=== PATIENT | female | born 2000 | race Caucasian/White ===

== ENCOUNTER 2024-01-30 15:04 | Emergency (ER) | payer OTHER, SELFPAY ==
[2024-01-30 15:16] VITALS: BP 140/79
--- NOTE | 2024-01-30 15:19 | ED.GENMED ---
ED Provider Triage
<Leida Grace PA-C - Last Filed: 01/30/24 15:24>
-
Patient seen by provider in Triage?: Seen in Triage
Attestation: A medical screening examination has been initiated by a qualified medical provider. Based on the assessment performed at this time, it has been determined that an emergent medical condition may exist and the patient has been informed
that further medical evaluation and possible additional diagnostic testing may be needed.
HPI: 24yo here with nausea, vomiting, and diarrhea that began this morning. 5 episodes of vomiting, 1 episode of diarrhea. Reports fever, tmax 99. Also having lower abd discomfort. Ate at a restaurant for [employer] yesterday.
GENERAL: Alert , in no apparent distress
EYE: No visual abnormalities.
NECK: Trachea midline
ENT: No visible abnormalities.
LUNGS: No acute respiratory distress
NEUROLOGICAL: Alert and oriented
SKIN: Skin intact. No visible changes.
MUSCULOSKELETAL: Moving extremities normally
PSYCH: Normal and appropriate interaction.
This is a medical evaluation conducted in person to initiate diagnostic evaluation and provide initial therapeutics. Please see further documentation by the treating clinician.
Abdominal labs, HCG, and COVID/flu swab ordered.
History of Present Illness
<Leida Grace PA-C - Last Filed: 01/30/24 15:24>
General
Chief Complaint: Abdominal Symptoms
Time Seen by Provider: 01/30/24 17:40
<Chan Funes PA-C - Last Filed: 01/30/24 21:10>
History of Present Illness
History of Present Illness:
24-year-old female presents to the emergency department for evaluation of intractable nausea vomiting and diarrhea beginning this morning. No known ill contacts at home. Did eat out at a restaurant last night however no one else that she was with
has similar symptoms. Reports generalized abdominal pain and increased heartburn symptoms. No history of abdominal surgery
Past History
<Leida Grace PA-C - Last Filed: 01/30/24 15:24>
Past History
ED Past Medical History: GERD and Psychiatric
ED Past Surgical History: Other (GI scope)
Social History
Tobacco: Vaping
Alcohol: Occasional
Drug: None
Personal: Single
Living: with family
Employment: Employed
Family History
Family History: Other (Noncontributory)
Review of Systems
<Chan Funes PA-C - Last Filed: 01/30/24 21:10>
Review of Systems
Allergies reviewed?: Yes
All Other Systems: ROS reviewed and negative except as documented in HPI and ROS
Phy Exam
<Chan Funes PA-C - Last Filed: 01/30/24 21:10>
Physical Exam
Physical Exam:
GEN: Well appearing, NAD, WDWN
HEENT: Oral mucosa moist, no scleral icterus
Cardiac: Mildly tachycardic, regular
Lung: No respiratory distress, no tachypnea
Abdomen: Soft, grossly nontender
MSK: No gross deformity or injuries
Skin: Good color, no pallor or jaundice, no rashes
Neuro: AO x3, moves all extremities freely
Psych: Calm, cooperative
Sepsis
<Chan Funes PA-C - Last Filed: 01/30/24 21:10>
Sepsis Screening
Sepsis Assessment: Sepsis Ruled Out
Sepsis Screen
Sepsis Screen: Sepsis Ruled Out
Date: 01/30/24
Time: 21:10
Course
<Leida Grace PA-C - Last Filed: 01/30/24 15:24>
Orders/Labs/Results
Orders:
Orders
01/30/24 15:21
Test Result ONCE
01/30/24 15:28
COVID-19 Antigen Urgent
Source: Nasal Swab
Complete Blood Count/With Diff Urgent
Comprehensive Metabolic Panel Urgent
HCG, Serum Qualitative Screen Urgent
Lipase Urgent
Influenza A+B Rapid Molecular Urgent
MENA Source: Nasal Swab
Specimen Description:
01/30/24 17:57
0.9% Sodium Chloride 1000 ml [Nss] 1,000 ml IV BOLUS
Ondansetron Injectable [Zofran] 4 mg IV NOW STA
01/30/24 20:02
Acetaminophen [Tylenol] 650 mg PO NOW STA
Abnormal Lab Results
01/30/24
15:28
WBC 19.8 H 10^3/uL
(4.8-10.8)
Abs Immat Gran (auto) 0.1 H 10^3/uL
(0-0.05)
Absolute Neuts (auto) 18.5 H 10^3/uL
(1.4-6.5)
Absolute Lymphs (auto) 0.3 L 10^3/uL
(1.2-3.4)
Absolute Monos (auto) 0.8 H 10^3/uL
(0.1-0.6)
Neutrophils % 93.2 H %
(42.2-75.2)
Lymphocytes % 1.7 L %
(20.5-51.1)
Creatinine 0.5 L mg/dL
(0.6-1.0)
Glucose 119 H mg/dl
(70-99)
01/30/24 15:28
01/30/24 15:28
Vital Signs
Initial and Last Documented VS:
Initial Vital Signs
Temp Pulse Resp BP Pulse Ox
99.0 F 107 18 140/79 98
01/30/24 15:16 01/30/24 15:16 01/30/24 15:16 01/30/24 15:16 01/30/24 15:16
Last Documented Vital Signs
Temp Pulse Resp BP Pulse Ox
98.4 F 78 18 129/68 100
01/30/24 21:06 01/30/24 19:16 01/30/24 21:06 01/30/24 19:16 01/30/24 21:06
<Chan Funes PA-C - Last Filed: 01/30/24 21:10>
Orders/Labs/Results
Orders:
Orders
01/30/24 15:21
Test Result ONCE
01/30/24 15:28
COVID-19 Antigen Urgent
Source: Nasal Swab
Complete Blood Count/With Diff Urgent
Comprehensive Metabolic Panel Urgent
HCG, Serum Qualitative Screen Urgent
Lipase Urgent
Influenza A+B Rapid Molecular Urgent
MENA Source: Nasal Swab
Specimen Description:
01/30/24 17:57
0.9% Sodium Chloride 1000 ml [Nss] 1,000 ml IV BOLUS
Ondansetron Injectable [Zofran] 4 mg IV NOW STA
01/30/24 20:02
Acetaminophen [Tylenol] 650 mg PO NOW STA
Abnormal Lab Results
01/30/24
15:28
WBC 19.8 H 10^3/uL
(4.8-10.8)
Abs Immat Gran (auto) 0.1 H 10^3/uL
(0-0.05)
Absolute Neuts (auto) 18.5 H 10^3/uL
(1.4-6.5)
Absolute Lymphs (auto) 0.3 L 10^3/uL
(1.2-3.4)
Absolute Monos (auto) 0.8 H 10^3/uL
(0.1-0.6)
Neutrophils % 93.2 H %
(42.2-75.2)
Lymphocytes % 1.7 L %
(20.5-51.1)
Creatinine 0.5 L mg/dL
(0.6-1.0)
Glucose 119 H mg/dl
(70-99)
01/30/24 15:28
01/30/24 15:28
Vital Signs
Initial and Last Documented VS:
Initial Vital Signs
Temp Pulse Resp BP Pulse Ox
99.0 F 107 18 140/79 98
01/30/24 15:16 01/30/24 15:16 01/30/24 15:16 01/30/24 15:16 01/30/24 15:16
Last Documented Vital Signs
Temp Pulse Resp BP Pulse Ox
98.4 F 78 18 129/68 100
01/30/24 21:06 01/30/24 19:16 01/30/24 21:06 01/30/24 19:16 01/30/24 21:06
<Chan Funes PA-C - Last Filed: 01/30/24 21:10>
MDM/Problems Addressed
MDM/Problems Addressed:
Likely self-limited viral syndrome. Significant leukocytosis is noted most likely a stress response as well as secondary to volume depletion. IV fluids administered with improvement in vital signs, patient able to tolerate p.o. fluids at time of
discharge
<Chan Funes PA-C - Last Filed: 01/30/24 21:10>
*Critical Care Note
Total Time (30-74mins, 75-104mins- exclusive of procedures): Not Applicable
ED Attending Note
<Leida Grace PA-C - Last Filed: 01/30/24 15:24>
-
Portions of this chart may have been created with voice recognition software.� Occasional wrong word or��sound alike� substitutions may have occurred due to the inherent limitations of voice recognition software.
Discharge Plan
Departure
Patient Disposition: Home (Routine Discharge)
Date of Disposition: 01/30/24
Time of Disposition: 20:50
Patient with high blood pressure during this ER visit?: No
Discharge Problem:
Gastroenteritis
Instructions: Nausea and Vomiting, Adult (DC)
Prescriptions:
New
ondansetron 4 mg tablet,disintegrating
4 mg PO TIDPRN PRN (Reason: nausea/vomiting) Qty: 10 0RF
No Action
armodafinil [Nuvigil] 150 MG tablet
250 mg PO DAILY
ondansetron 4 MG tablet,disintegrating
4 mg PO TIDPRN PRN (Reason: nausea/vomiting) Qty: 10 0RF
omeprazole magnesium [Prilosec OTC] 20 MG tablet,delayed release (DR/EC)
20 mg PO DAILY
Referrals:
Tracy Mcgarry MD [Family Provider] -
Interventions
Interventions:
*Risk Screen - Suicide Last Done: 01/30/24 19:14
*General Assessment Last Done: 01/30/24 19:14
*Neglect/Abuse Screening Last Done: 01/30/24 19:14
ED- Fall Risk Assessment Last Done: 01/30/24 19:19
*ED COVID-19 Vaccine History Last Done: 01/30/24 19:14
*Nursing Disposition Last Done: 01/30/24 21:06
BQ-Pwonhc-Oigqlrwhsy Assessment Last Done: 01/30/24 19:19
Discharge Date and Time
Discharge Date/Time: 01/30/24 21:08
Print Language: THAI
[2024-01-30 15:43] LABS: % Basophils 0.3 % (0-2); % Eosinophils 0.6 % (0-6); % Immature Granulocytes 0.4 % (0-0.5); % Lymphocytes 1.7 % (20.5-51.1); % Monocytes 3.8 % (1.7-9.3); % Neutrophils 93.2 % (42.2-75.2); Absolute Basophils 0.1 10^3/uL (0-0.2); Absolute Eosinophils 0.1 10^3/uL (0-0.7); Absolute Immature Granulocytes 0.1 10^3/uL (0-0.05); Absolute Lymphocytes 0.3 10^3/uL (1.2-3.4); Absolute Monocytes 0.8 10^3/uL (0.1-0.6); Absolute Neutrophils 18.5 10^3/uL (1.4-6.5); Hematocrit 42.7 % (37.0-47.0); Hemoglobin 14.8 g/dL (12.0-16.0); Mean Corp Hgb Conc. 34.7 g/dL (33.0-37.0); Mean Corpuscular Hgb 30.7 pg (27.0-31.0); Mean Corpuscular Volume 88.6 fL (81.0-99.0); Mean Platelet Volume 10.1 fL (7.4-10.4); Nucleated Red Blood Cells % 0 %; Platelet Count 313 10^3/uL (130-400); Red Blood Cell Count 4.82 10^6/uL (4.20-5.40); Red Cell Dist. Width 12.4 % (11.5-14.5); White Blood Cell Count 19.8 10^3/uL (4.8-10.8)
[2024-01-30 15:50] LABS: COVID-19 Antigen Negative (Negative)
[2024-01-30 15:52] LABS: HCG, Serum Qualitative Screen Negative
[2024-01-30 15:57] LABS: ALT (SGPT) 23 U/L (0-35); AST (SGOT) 25 U/L (14-36); Albumin 4.8 g/dl (3.5-5.0); Alkaline Phosphatase 66 U/L (38-126); Blood Urea Nitrogen 12 mg/dl (7-17); Calcium 9.5 mg/dl (8.4-10.2); Carbon Dioxide 27 mmol/L (22-30); Chloride 104 mmol/L (98-107); Glucose 119 mg/dl (70-99); Lipase 60 U/L (23-300); Potassium 4.1 mmol/L (3.5-5.1); Sodium 139 mmol/L (135-145); Total Bilirubin 0.8 mg/dl (0.2-1.3); Total Protein 7.4 g/dl (6.3-8.2); eGFR > 60.00
[2024-01-30 19:07] VITALS: BMI 27.3
[2024-01-30] MEDS: NSS 1000 IV (19:12)
[2024-01-30] MEDS: ZOFRAN 4 MG IV (19:12)
[2024-01-30 19:16] VITALS: BP 129/68
[2024-01-30] MEDS: TYLENOL 650 MG PO (20:11)
== END 2024-01-30 21:08 | disposition home or self-care (01) ==
LOC: EMR 15:04
PROVIDERS: Physician Assistant; EMERGENCY PHYSICIAN Emergency Medicine; FAMILY PHYSICIAN Internal Medicine
DX: K52.9 Noninfective gastroenteritis and colitis, unspecified (principal); K21.9 Gastro-esophageal reflux disease without esophagitis; F17.290 Nicotine dependence, other tobacco product, uncomplicated
CPT/HCPCS: 96374; 96361; 99284; 80053; 83690; 84703; 85025; 87502; 87811

== ENCOUNTER → 2024-09-24 09:26 | Outpatient (REF) | payer OTHER, SELFPAY | LOC: EMG 09:26 | PROVIDERS: ATTENDING PHYSICIAN Nurse Practitioner | DX: R20.2 Paresthesia of skin (principal) | CPT/HCPCS: 95886; 95910 ==